=== PATIENT | female | born 1930 | race Caucasian/White ===

== ENCOUNTER 2017-07-12 13:37 | Emergency (ER) | payer MEDICARE, BC ==
[~2017-07-12] VITALS: Ht 154.9 cm; Wt 56.2 kg
[~2017-07-12 13:37] MED LIST: ALPR0.5T PO; AMLO5TAB2 PO; CEFD300C3 PO; LABE100T2 PO; LIPITOR; PARO20TA57 PO
[2017-07-12] MEDS ORDERED: LORazepam INJ 2 MG/ML (ATIVAN) VIAL ONE (13:41)
[2017-07-12] MEDS ORDERED: LORazepam INJ 2 MG/ML (ATIVAN) VIAL IVP ONE ×2 (13:45→15:30)
--- NOTE | 2017-07-12 13:46 | ED General ---
General Stated Complaint: AMS Source of Information: Patient, EMS Exam Limitations: No Limitations History of Present Illness Date Seen by Provider: Jul 12, 2017 Time Seen by Provider: 13:44 Initial Comments To ER per EMS from home with c/o altered mental status. Family called 911 after patient became combative this morning, throwing things around the house. She believed her son was her . She does not have a power of privacy attorney. There have apparently been behavioral issues recently and PCP Dr Duckworth recommended SB[facility] placement at [facility] and patient declined, however, family wanted her there but due to no DPOA this could not be done is my understanding. Also believes she just moved here from [place] when in fact she's been here since 2010. Timing/Duration: 1-2 Days Severity: Moderate Allergies and Home Medications Allergies Uncoded Allergies: PENICLLIN (Allergy, Unknown, 08/28/14) SULFA (Allergy, Unknown, 08/28/14) Home Medications Alprazolam 0.5 Mg Tablet, 0.5 MG PO BID PRN for ANXIETY, (Reported) Amlodipine Besylate 5 Mg Tab, 5 MG PO BID, (Reported) Cefdinir 300 Mg Capsule, 1 EACH PO BID Prescribed by: KIMBER DAVALOS on 08/28/14 1808 Cefdinir 300 Mg Capsule, 300 MG PO BID Prescribed by: SARABJIT GARCIA on 07/12/17 1736 Labetalol Hcl 100 Mg Tablet, 200 MG PO BID, (Reported) Paroxetine Hcl 20 Mg Tablet, 20 MG PO DAILY, (Reported) Patient Home Medication List Home Medication List Reviewed: Yes Review of Systems Constitutional: see HPI EENTM: see HPI Respiratory: no symptoms reported Cardiovascular: no symptoms reported Genitourinary: no symptoms reported Musculoskeletal: no symptoms reported Skin: no symptoms reported Psychiatric/Neurological: See HPI Past Jromevt-Dmgwlc-Guxwly Hx Past Medical History Hysterectomy, Orthopedic Heart Murmur, Hypertension Stroke Arthritis Anxiety, Depression Physical Exam Vital Signs Vital Signs - First Documented 07/12/17 13:37 Temp 99.2 Pulse 75 Resp 18 B/P (MAP) 146/98 (114) Pulse Ox 97 O2 Delivery Room Air Capillary Refill : General Appearance: No Apparent Distress, WD/WN, Other (obviously confused, does not know the year, her age, her , or location. However, at this time she is pleasant. ) HEENT: PERRL/EOMI, TMs Normal Neck: Full Range of Motion, Normal Inspection Respiratory: No Accessory Muscle Use, No Respiratory Distress Cardiovascular: Regular Rate, Rhythm, Normal Peripheral Pulses Gastrointestinal: Normal Bowel Sounds, Non Tender, Soft Extremity: Normal Capillary Refill, Normal Inspection Neurologic/Psychiatric: Alert, No Motor/Sensory Deficits, Other (Talks about sawdust in her bed, states that her kids ar "going to bury me in just dirt and Sandi already paid for my grave". ) Skin: Normal Color, Warm/Dry, Other (excoriated skin right lateral leg possibly exzema that shes been scratching. ) Progress/Results/Core Measures Suspected Sepsis SIRS Temperature: Pulse: Respiratory Rate: Laboratory Tests 07/12/17 13:40: White Blood Count 11.8H Blood Pressure / Mean: Laboratory Tests 07/12/17 13:40: INR Comment 0.9, Platelet Count 244 07/12/17 14:28: Creatinine 0.99, Total Bilirubin 0.3 Results/Orders Lab Results Laboratory Tests Test 07/12/17 13:40 07/12/17 14:28 07/12/17 17:03 Range/Units White Blood Count 11.8 H 4.3-11.0 10^3/uL Red Blood Count 4.67 4.35-5.85 10^6/uL Hemoglobin 15.1 11.5-16.0 G/DL Hematocrit 44 35-52 % Mean Corpuscular Volume 94 80-99 FL Mean Corpuscular Hemoglobin 32 25-34 PG Mean Corpuscular Hemoglobin Concent 34 32-36 G/DL Red Cell Distribution Width 13.4 10.0-14.5 % Platelet Count 244 130-400 10^3/uL Mean Platelet Volume 10.3 7.4-10.4 FL Neutrophils (%) (Auto) 68 42-75 % Lymphocytes (%) (Auto) 22 12-44 % Monocytes (%) (Auto) 9 0-12 % Eosinophils (%) (Auto) 1 0-10 % Basophils (%) (Auto) 0 0-10 % Neutrophils # (Auto) 8.0 H 1.8-7.8 X 10^3 Lymphocytes # (Auto) 2.6 1.0-4.0 X 10^3 Monocytes # (Auto) 1.0 0.0-1.0 X 10^3 Eosinophils # (Auto) 0.2 0.0-0.3 10^3/uL Basophils # (Auto) 0.0 0.0-0.1 10^3/uL Prothrombin Time 12.7 12.2-14.7 SEC INR Comment 0.9 0.8-1.4 Sodium Level 142 135-145 MMOL/L Potassium Level 3.7 3.6-5.0 MMOL/L Chloride Level 109 H 98-107 MMOL/L Carbon Dioxide Level 23 21-32 MMOL/L Anion Gap 10 5-14 MMOL/L Blood Urea Nitrogen 23 H 7-18 MG/DL Creatinine 0.99 0.60-1.30 MG/DL Estimat Glomerular Filtration Rate 53 BUN/Creatinine Ratio 23 Glucose Level 96 70-105 MG/DL Calcium Level 9.5 8.5-10.1 MG/DL Total Bilirubin 0.3 0.1-1.0 MG/DL Aspartate Amino Transf (AST/SGOT) 21 5-34 U/L Alanine Aminotransferase (ALT/SGPT) 17 0-55 U/L Alkaline Phosphatase 59 40-136 U/L Total Protein 6.4 6.4-8.2 GM/DL Albumin 3.7 3.2-4.5 GM/DL Urine Color YELLOW Urine Clarity SLIGHTLY CLOUDY Urine pH 5 5-9 Urine Specific [place] 1.025 H 1.016-1.022 Urine Protein 1+ H NEGATIVE Urine Glucose (UA) NEGATIVE NEGATIVE Urine Ketones 1+ H NEGATIVE Urine Nitrite NEGATIVE NEGATIVE Urine Bilirubin NEGATIVE NEGATIVE Urine Urobilinogen NORMAL NORMAL MG/DL Urine Leukocyte Esterase 3+ H NEGATIVE Urine RBC (Auto) 2+ H NEGATIVE Urine RBC 2-5 H /HPF Urine WBC 50-100 H /HPF Urine Squamous Epithelial Cells 2-5 /HPF Urine Crystals NONE /LPF Urine Bacteria FEW H /HPF Urine Casts NONE /LPF Urine Mucus NEGATIVE /LPF Urine Culture Indicated YES My Orders Orders - SARABJIT GARCIA APRN Ct Head Wo (07/12/17 13:42) Chest 1 View, Ap/Pa Only (07/12/17 13:42) Ekg Tracing (07/12/17 13:42) Ua Culture If Indicated (07/12/17 13:42) Cbc With Automated Diff (07/12/17 13:42) Comprehensive Metabolic Panel (07/12/17 13:42) Protime With Inr (4/11/18 13:42) Saline Lock/Iv-Start (07/12/17 13:42) Lorazepam Injection (Ativan Injection) (07/12/17 13:45) Lorazepam Injection (Ativan Injection) (07/12/17 15:30) General/Regular (07/12/17 Lunch) Urine Culture (07/12/17 17:03) Cefdinir Capsule (Omnicef Capsule) (07/12/17 17:45) Medications Given in ED Current Medications Medications Dose Ordered Sig/Josey Route Start Time Stop Time Status Last Admin Dose Admin Cefdinir 300 mg ONCE ONCE PO 07/12/17 17:45 07/12/17 17:46 DC 07/12/17 17:55 300 MG Lorazepam 0.5 mg ONCE ONCE IVP 07/12/17 13:45 07/12/17 13:46 DC 07/12/17 13:46 0.5 MG Lorazepam 0.5 mg ONCE ONCE IVP 07/12/17 15:30 07/12/17 15:31 DC 07/12/17 15:35 0.5 MG Vital Signs/I&O 07/12/17 07/12/17 13:37 17:59 Temp 99.2 Pulse 75 71 Resp 18 20 B/P (MAP) 146/98 (114) 123/71 Pulse Ox 97 97 O2 Delivery Room Air Capillary Refill : Diagnostic Imaging Diagonstic Imaging: CT Plain Films/CT/US/NM/MRI: chest Comments NAME: PARRISH LOERA [facility] REC#: [id number] PT STATUS: REG ER : 1930 PHYSICIAN: SARABJIT GARCIA APRN ADMIT DATE: 07/12/17/ER Draft Date of Exam:07/12/17 CT HEAD WO INDICATION: Altered mental status. TECHNIQUE: Routine noncontrast enhanced axial images were obtained from the skull base to the vertex. COMPARISON: 08/28/2014. FINDINGS: The ventricles and cortical sulci are diffusely prominent, compatible with age-related volume loss. There are confluent areas of abnormal, low attenuation in the periventricular white matter. This is consistent with chronic small vessel ischemic changes. There is no midline shift or mass effect. No acute intra-axial hemorrhage is seen. There are no abnormal areas of increased or decreased density to suggest acute hemorrhage or edema. No extra-axial masses or collections are present. The bony calvarium is intact. The visualized paranasal sinuses are unremarkable. The mastoid air cells are clear. IMPRESSION: 1. No acute intracranial abnormality. No CT evidence of mass, acute infarct, or intracranial hemorrhage. 2. Chronic small vessel ischemic changes in the periventricular and subcortical white matter. Dictated on workstation # [id number] Dict: 07/12/17 1403 Trans: 07/12/17 1416 [id number] Interpreted by: LUIS HAWKINS MD Electronically signed by: NAME: PARRISH LOERA [facility] REC#: [id number] PT STATUS: REG ER : 1930 PHYSICIAN: SARABJIT GARCIA APRN ADMIT DATE: 07/12/17/ER Draft Date of Exam:07/12/17 CHEST 1 VIEW, AP/PA ONLY INDICATION: Altered mental status. TIME OF EXAMINATION: 2:25 PM. TECHNIQUE: No prior studies are available for comparison. FINDINGS: There is left convexity thoracic scoliotic curvature. The heart size is normal. The thoracic aorta appears to be ectatic and tortuous. The lungs are clear. No infiltrate or failure is seen. No effusion or pneumothorax is identified. IMPRESSION: No acute cardiopulmonary process is detected. Dictated on workstation # [id number] Dict: 07/12/17 1416 Trans: 07/12/17 1421 [id number] Interpreted by: DARION BRADLEY MD Electronically signed by: Departure Communication (Admissions) [id number]-Jacqueline howell from [facility] is here and pt qualifies for admission. Given one omnicef 300mg tablet here, family will transport. Dr Moran has accepted for psych, dr michaels will accept for medical. Impression Primary Impression: Delusions Additional Impression: Urinary tract infection Disposition: HOME, SELF-CARE Condition: Stable Departure-Patient Inst. Decision time for Depature: 17:24 Referrals: JOLENE DUCKWORTH MD (PCP/Family) Primary Care Physician Patient Instructions: NO INSTRUCTIONS GIVEN Add. Discharge Instructions: 1. Return to ER for any concerns Scripts Cefdinir (Cefdinir) 300 Mg Capsule 300 MG PO BID, #10 CAP Prov: SARABJIT GARCIA APRN 07/12/17 SARABJIT GARCIA APRN Jul 12, 2017 13:46
[2017-07-12 13:58] LABS: BASOPHILS % (AUTO) 0 % (0-10); EOSINOPHILS # (AUTO) 0.2 10^3/uL (0.0-0.3); EOSINOPHILS % (AUTO) 1 % (0-10); HEMATOCRIT 44 % (35-52); HEMOGLOBIN 15.1 G/DL (11.5-16.0); LYMPHOCYTES # (AUTO) 2.6 X 10^3 (1.0-4.0); LYMPHOCYTES % (AUTO) 22 % (12-44); MEAN CORPUSCULAR HEMOGLOBIN 32 PG (25-34); MEAN CORPUSCULAR HGB CONC 34 G/DL (32-36); MEAN CORPUSCULAR VOLUME 94 FL (80-99); MEAN PLATELET VOLUME 10.3 FL (7.4-10.4); MONOCYTES % (AUTO) 9 % (0-12); NEUTROPHILS % (AUTO) 68 % (42-75); PLATELET COUNT 244 10^3/uL (130-400); RED BLOOD COUNT 4.67 10^6/uL (4.35-5.85); RED CELL DISTRIBUTION WIDTH 13.4 % (10.0-14.5); WHITE BLOOD COUNT 11.8 10^3/uL (4.3-11.0)
[2017-07-12 14:00] LABS: INR 0.9 (0.8-1.4); PROTHROMBIN TIME PATIENT 12.7 SEC (12.2-14.7)
--- NOTE | 2017-07-12 14:17 | Diagnostic Imaging Report ---
INDICATION: Altered mental status. TECHNIQUE: Routine noncontrast enhanced axial images were obtained from the skull base to the vertex. COMPARISON: 08/28/2014. FINDINGS: The ventricles and cortical sulci are diffusely prominent, compatible with age-related volume loss. There are confluent areas of abnormal, low attenuation in the periventricular white matter. This is consistent with chronic small vessel ischemic changes. There is no midline shift or mass effect. No acute intra-axial hemorrhage is seen. There are no abnormal areas of increased or decreased density to suggest acute hemorrhage or edema. No extra-axial masses or collections are present. The bony calvarium is intact. The visualized paranasal sinuses are unremarkable. The mastoid air cells are clear. IMPRESSION: 1. No acute intracranial abnormality. No CT evidence of mass, acute infarct, or intracranial hemorrhage. 2. Chronic small vessel ischemic changes in the periventricular and subcortical white matter. Dictated by: Dictated on workstation # [id number]
--- NOTE | 2017-07-12 14:22 | Diagnostic Imaging Report ---
INDICATION: Altered mental status. TIME OF EXAMINATION: 2:25 PM. TECHNIQUE: No prior studies are available for comparison. FINDINGS: There is left convexity thoracic scoliotic curvature. The heart size is normal. The thoracic aorta appears to be ectatic and tortuous. The lungs are clear. No infiltrate or failure is seen. No effusion or pneumothorax is identified. IMPRESSION: No acute cardiopulmonary process is detected. Dictated by: Dictated on workstation # [id number]
[2017-07-12 15:05] LABS: ALBUMIN 3.7 GM/DL (3.2-4.5); BILIRUBIN,TOTAL 0.3 MG/DL (0.1-1.0); CALCIUM 9.5 MG/DL (8.5-10.1); CREATININE SERUM 0.99 MG/DL (0.60-1.30); POTASSIUM 3.7 MMOL/L (3.6-5.0); TOTAL PROTEIN 6.4 GM/DL (6.4-8.2)
[2017-07-12 17:16] LABS: BILIRUBIN,URINE NEGATIVE (NEGATIVE); CLARITY,URINE SLIGHTLY CLOUDY; COLOR,URINE YELLOW; GLUCOSE, URINE (UA) NEGATIVE (NEGATIVE); KETONES,URINE 1+ (NEGATIVE); LEUKOCYTE ESTERASE ,URINE 3+ (NEGATIVE); NITRITE,URINE NEGATIVE (NEGATIVE); PH,URINE 5 (5-9); PROTEIN,URINE 1+ (NEGATIVE); UROBILINOGEN,URINE NORMAL (NORMAL)
[2017-07-12 17:27] LABS: BACTERIA,URINE FEW /HPF; WBC,URINE 50-100 /HPF
[2017-07-12] MEDS ORDERED: CEFD300C3 PO (17:36)
[2017-07-12] MEDS ORDERED: CEFDINIR 300 MG (OMNICEF) CAP PO ONE (17:45)
[2017-07-12 17:59] VITALS: BP 123/71
== END 2017-07-12 17:59 | disposition home or self-care (01) ==
LOC: EDUNIT# 13:37 → ER 13:39
DX: F22 Delusional disorders (principal); N39.0 Urinary tract infection, site not specified; I10 Essential (primary) hypertension; F41.9 Anxiety disorder, unspecified; F32.9 Major depressive disorder, single episode, unspecified; Z88.0 Allergy status to penicillin; Z88.2 Allergy status to sulfonamides; Z90.710 Acquired absence of both cervix and uterus; Z86.73 Personal history of transient ischemic attack (TIA), and cerebral infarction without residual deficits
CPT/HCPCS: 36415; 70450; 71045; 80053; 81000; 85025; 85610; 87077; 87088; 87186; 93005

== ENCOUNTER → 2017-09-01 | Outpatient (CLI) | payer MEDICARE, BC ==
--- NOTE | 2017-09-01 15:29 | Diagnostic Imaging Report ---
INDICATION: Fall with pelvis and right hip pain. AP pelvis and AP and oblique views of the right hip are obtained. No fracture or acute bony abnormality is seen. Joint spaces are unremarkable. IMPRESSION: Negative pelvis and right hip. Dictated by: Dictated on workstation # [id number]
--- NOTE | 2017-09-01 15:31 | Diagnostic Imaging Report ---
INDICATION: Right thigh pain post fall. AP and lateral views of the right femur are obtained. No fracture or acute bony abnormality is seen. There are vascular calcifications noted. IMPRESSION: No acute abnormality of right femur. Dictated by: Dictated on workstation # [id number]
== END ==
LOC: RAD 14:00
PROVIDERS: ATTEND Nurse Practitioner Family
DX: M25.551 Pain in right hip (principal); W19.XXXA Unspecified fall, initial encounter
CPT/HCPCS: 73552

== ENCOUNTER → 2017-09-14 | Outpatient (CLI) | payer MEDICARE, BC ==
--- NOTE | 2017-09-14 16:55 | Diagnostic Imaging Report ---
INDICATION: Fall and left hip pain. TIME OF EXAM: 3:30 PM FINDINGS: Two views of left hip demonstrate normal femoral acetabular alignment. The femoral head and neck are intact. Joint space is well maintained. No fracture is seen. Left-sided rami are intact. IMPRESSION: No acute bony abnormality is detected. Dictated by: Dictated on workstation # [id number]
--- NOTE | 2017-09-14 16:56 | Diagnostic Imaging Report ---
INDICATION: Fall with left knee pain. TIME OF EXAM: 3:32 PM Three views of the left knee were obtained. FINDINGS: The alignment is normal. The joint spaces are well maintained. The articular surfaces are smooth. No fracture, dislocation or effusion is seen. Femoropopliteal vascular calcifications are present. IMPRESSION: No acute bony abnormality is detected. Dictated by: Dictated on workstation # [id number]
== END ==
LOC: RAD 14:25
PROVIDERS: ATTEND Nurse Practitioner Family
DX: M25.552 Pain in left hip (principal); M25.562 Pain in left knee; W19.XXXA Unspecified fall, initial encounter
CPT/HCPCS: 73502; 73562